=== PATIENT | male | born 1945 ===

== ENCOUNTER 2017-09-23 06:38 | Emergency (ER) | payer OTHER, MEDICARE ==
[2017-09-23] MEDS ORDERED: Morphine 4 mg/ml ISec IVP STA ×2 (06:47→08:28)
[2017-09-23] MEDS ORDERED: Sodium Chloride 0.9% 1,000 ML IV STA (06:47)
[2017-09-23 07:08] VITALS: RESP 18; TEMP 98.4; O2SAT 100
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
[2017-09-23 07:22] LABS: ALB/GLOB RATIO 1.4 (1.1-1.8); ALBUMIN 4.3 g/dL (3.0-4.8); ALT/SGPT 25 U/L (7-56); AST/SGOT 30 U/L (17-59); BLOOD UREA NITROGEN 16 mg/dL (7-21); CALCIUM 9.5 mg/dL (8.4-10.5); GFR AFRICAN-AMERICAN > 60; GFR NON-AFRICAN AMERICAN > 60; PARTIAL THROMBOPLASTIN TIME 26.4 Seconds (25.1-36.5); PROTHROMBIN TIME 11.5 SECONDS (9.4-12.5)
[2017-09-23 07:33] LABS: TROPONIN I < 0.01 ng/mL
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
[2017-09-23] MEDS ORDERED: Iohexol 350 MG/100 ML VIAL ONE (07:41)
[2017-09-23 08:26] LABS: BASO # 0.02 K/mm3 (0.0-2.0); BASO % 0.4 % (0.0-3.0); EOS # 0.3 (0.0-0.7); EOS % 4.8 % (1.5-5.0); GRAN # 3.51 (1.4-6.5); GRAN % 65.1 % (50.0-68.0); HEMOGLOBIN 15.3 g/dL (14.0-18.0); LYMPH # 1.1 (1.2-3.4); LYMPH % 21.2 % (22.0-35.0); MEAN CELL VOLUME 92.2 fl (80.0-105.0); MEAN CORPUSCULAR HEMOGLOBIN 31.5 pg (25.0-35.0); MEAN CORPUSCULAR HGB CONC 34.2 g/dl (31.0-37.0); MEAN PLATELET VOLUME 11.1 fl (7.0-11.0); MONO # 0.5 (0.1-0.6); MONO % 8.5 % (1.0-6.0); RBC 4.86 10^6/uL (3.5-6.1); RED CELL DISTRIBUTION WIDTH 12.7 % (11.5-14.5); WHITE BLOOD COUNT 5.4 10^3/ul (4.5-11.0)
--- NOTE | 2017-09-23 08:31 | RAD ---
HISTORY: chest pain COMPARISON: No prior. FINDINGS: LUNGS: No active pulmonary disease. PLEURA: No significant pleural effusion identified, no pneumothorax apparent. CARDIOVASCULAR: Normal. OSSEOUS STRUCTURES: No significant abnormalities. VISUALIZED UPPER ABDOMEN: Normal. OTHER FINDINGS: None. IMPRESSION: No active disease.
--- NOTE | 2017-09-23 08:43 | RAD ---
PROCEDURE: Left Knee Radiographs. HISTORY: Pain. COMPARISON: None. FINDINGS: BONES: Normal. No fracture. JOINTS: Normal. No osteoarthritis. JOINT EFFUSION: None. OTHER FINDINGS: None. IMPRESSION: Normal radiographs of the left knee.
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
[2017-09-23 09:49] VITALS: BP 140/75; PULSE 64
--- NOTE | 2017-09-23 19:00 | CARD ---
APPROVED REPORT EKG Measurement Heart [id number] <Conclusion> Normal sinus rhythm Normal ECG
== END 2017-09-23 09:49 | disposition home or self-care (01) ==
LOC: ED 06:38
DX: S20.219A Contusion of unspecified front wall of thorax, initial encounter (principal); S60.812A Abrasion of left wrist, initial encounter; S80.00XA Contusion of unspecified knee, initial encounter; V49.9XXA Car occupant (driver) (passenger) injured in unspecified traffic accident, initial encounter
CPT/HCPCS: 70450; 71045; 71260; 72125; 73110; 73560; 74177; 80053; 84484; 85025; 85610; 85730; 93005; 96374; 96376; 99285; G0480; J2270; J7030; Q9967